=== PATIENT | female | born 1990 | race Caucasian/White ===

== ENCOUNTER 2021-03-13 20:25 | Inpatient (IN) | payer SELFPAY ==
[~2021-03-13] VITALS: Ht 180.3 cm; Wt 87.3 kg
[2021-03-13] VITALS (11 sets, daily range): BP systolic 94–121; BP diastolic 59–76; PULSE 119–137; TEMP 98
--- NOTE | 2021-03-13 20:22 | NUR ---
2021 Patient arrived to unit via EMS after a home with lay out machine operator, Aleida. Patient assisted from stretcher to bed. Pants removed, placenta undelivered, moderate amount of bleeding noted. Patient reports that she delivered a baby boy via around 1829 tonight. She states that her labor started Thursday evening, became more active this morning, and her water broke this afternoon. She reports around 3 hours of pushing. She states that around 1929 she tried to stand up and got "lightheaded and almost fainted", this is when EMS was called. Blood pressure stable at 101/72, tachycardia noted at 137 bpm. Patient pale and reports that she is "tired", she is alert and responses appropriately to questions. Dr. Castillo on his way to the hospital. Plan of care reviewed.
[2021-03-13] MEDS ORDERED: PRENATAL TABLET PO (20:58)
--- NOTE | 2021-03-13 21:08 | NUR ---
2104 Dr. Castillo to room, patient prepped for delivery of placenta. 2107 Spontaneous delivery of placenta by Dr. Castillo. Fundus firms with massage. Repair of 2nd degree perineal laceration with 6cm left wall laceration repair started by Dr. Castillo.
--- NOTE | 2021-03-13 21:30 | NUR ---
2125 Repair complete, pericare provided, and ice pack applied. Plan of care reviewed by Dr. Castillo.
--- NOTE | 2021-03-13 23:30 | NUR ---
Patient feels the urge to void, assisted to the edge of the bed, patient states that she feels "lightheaded and nauseous", appears pale. Assisted back to lying down, plan of care reviewed and patient would like to try to use the bedpan. Patient voids 400cc without difficulty.
[2021-03-14] VITALS (16 sets, daily range): BP systolic 98–127; BP diastolic 56–72; PULSE 92–126; TEMP 97.8–98.8
[2021-03-14 01:19] LABS: MEAN CELL VOLUME 81 fl (80.0-100.0); MEAN CORPUSCULAR HGB CONC 34 g/dl (33.0-37.0); MEAN PLATELET VOLUME 13.4 fl (7.4-10.4); PLATELET COUNT 204 K/mm3 (130-400); RED BLOOD COUNT 2.97 M/mm3 (4.10-5.30); REDCELL DISTRIBUTION WIDTH-CV 14.6 % (11.5-14.5)
[2021-03-14 01:32] LABS: HEMOGLOBIN 8.1 g/dl (12.5-16.0); MEAN CORPUSCULAR HEMOGLOBIN 27 pg (27-31)
[2021-03-14 02:08] LABS: BAND 7 % (0-10); LYMPHOCYTE 6 % (20.0-51.0); MICROCYTOSIS 1+; NEUTROPHILS 183 % (42.0-75.2); PLATELET ESTIMATE NORMAL (NORMAL)
[2021-03-14 02:09] LABS: HYPOCHROMIA 1+
--- NOTE | 2021-03-14 02:15 | NUR ---
Patient assisted to the edge of the bed and denies feeling lightheaded. Assisted to standing, pericare and pads provided, and patient transferred to wheelchair x1 assist. To room 212 via wheelchair.
--- NOTE | 2021-03-14 08:55 | NUR ---
THIS RN INTO ROOM TO HELP PT TO THE TOILET. PT MOVING VERY SLOWLY AND STATES SHE IS NERVOUS. THIS RN REASSURES HER. DAD TO MOMS SIDE TO ASSIST WITH WALKING MOM TO TOILET. AFTER 3 STEPS WERE TAKEN, PT STATES SHE IS DIZZY AND SHORT OF BREATH. THIS RN SITS PT BACK DOWN AND TAKES VITALS. BP 117/73 AND SPO2 100%. PT CLAIMS SHE FEELS OK TO TRY AGAIN. THIS TIME MADE IT TO THE TOILET AND VOIDED 600 CC IN HAT. CHANGED PAD. THIS RN ASSISTED PT BACK TO BED.
[2021-03-14 12:18] LABS: HEMATOCRIT 19.9 % (37.0-47.0); HEMOGLOBIN 6.7 g/dl (12.5-16.0)
--- NOTE | 2021-03-14 12:30 | NUR ---
Iv start to right hand. Iv fluids of lactated ringers infusing at 500 cc bolus as ordered. Visits with patient about hemaglobin at 6.7, and that Dr. Duong would like to transfuse on unit of packed red blood cells. Patient and states would like to visit about this for a few minutes.
--- NOTE | 2021-03-14 17:15 | NUR ---
Blood transfusion complete. 1724 Lasix 10 mg iv given as ordered. Assisted to commode, voids large amount of clear yellow urine with tinge of red color.
--- NOTE | 2021-03-14 19:05 | NUR ---
Pt and spouse ask what needs to be done if they go home before the 24hr delmis, Discussed that H&H recheck after blood transfusion is ordered for 1899. And I would call the On-Call DR and see what needs to be done. Pt states "I really feel a lot better" Pt relxed, using breast pump.
[2021-03-14 19:41] LABS: HEMATOCRIT 20.6 % (37.0-47.0); HEMOGLOBIN 6.8 g/dl (12.5-16.0)
--- NOTE | 2021-03-14 20:00 | NUR ---
Discuss with pt and spouse that On-call Dr would like pt to stay over night and receive another unit of blood. If pt decides to go home, she will need to sign out AMA.
--- NOTE | 2021-03-14 20:10 | NUR ---
pt tearful, on phone relaying information to small parts assembler service asking for recommendations.
--- NOTE | 2021-03-14 20:35 | NUR ---
Spouse states "she's going to stay and get the blood transfusion. The pipe fitter ammonia is concerned about the baby's weight loss. Can we use a scale?"
[2021-03-15] VITALS: BP 99/48; PULSE 104
[2021-03-15 00:30] VITALS: BP 104/72; PULSE 86; TEMP 98.4
[2021-03-15 01:00] VITALS: BP 106/66; PULSE 90
--- NOTE | 2021-03-15 01:00 | NUR ---
Blood transfusion complete, 35mls NS to clear line, NS flush. IV to INT. Up to bathroom with steady gait. into shower. Call light within reach. bathroom dooer jamshid. in room.
--- NOTE | 2021-03-15 02:10 | NUR ---
pt relaxed cuddling with spouse and infant. Pt reminded that baby could not sleep with them in the bed. Verbalized understanding
[2021-03-15 05:51] LABS: BASO # 0.1 K/mm3 (0.0-0.2); BASO % 0.4 % (0.0-2.0); EOS # 0.4 K/mm3 (0.0-0.7); EOS % 1.9 % (0.0-4.0); GRAN # 14.8 K/mm3 (1.4-6.5); GRAN % 81.8 % (42.2-75.2); LYMPH # 2.1 K/mm3 (1.2-3.4); LYMPH % 11.4 % (20.0-51.0); MEAN CORPUSCULAR HGB CONC 33 g/dl (33.0-37.0); MEAN PLATELET VOLUME 12.9 fl (7.4-10.4); MONO # 0.7 K/mm3 (0.1-0.6); MONO % 3.7 % (1.7-9.3); PLATELET COUNT 123 K/mm3 (130-400); RED BLOOD COUNT 2.51 M/mm3 (4.10-5.30); REDCELL DISTRIBUTION WIDTH-CV 14.9 % (11.5-14.5)
[2021-03-15 06:17] LABS: HEMATOCRIT 21.6 % (37.0-47.0); HEMOGLOBIN 7.1 g/dl (12.5-16.0); MEAN CORPUSCULAR HEMOGLOBIN 28 pg (27-31)
[2021-03-15 06:18] LABS: MEAN CELL VOLUME 86 fl (80.0-100.0)
[2021-03-15 07:45] VITALS: BP 97/58; PULSE 88; TEMP 98.4
[2021-03-15] MEDS ORDERED: IBU600 MG PO (09:32)
== END 2021-03-15 11:50 | disposition home or self-care (01) | DRG 769 ==
LOC: LDR 20:25 → LDRO 20:25 → LDR 03-14 00:33 → OB 03-14 02:45 → LDRO 03-14 02:46 → OB 03-14 12:24
PROVIDERS: Student in an Organized Health Care Education/Training Program; ADMIT Obstetrics & Gynecology
PROC: 0KQM0ZZ Repair Perineum Muscle, Open Approach (ICD-10-PCS; principal; 2021-03-14)
PROC: 0UQGXZZ Repair Vagina, External Approach (ICD-10-PCS; 2021-03-14)
PROC: 0UQMXZZ Repair Vulva, External Approach (ICD-10-PCS; 2021-03-14)
DX: Z39.0 Encounter for care and examination of mother immediately after delivery (principal); O90.81 Anemia of the puerperium; D64.9 Anemia, unspecified; O99.893 Other specified diseases and conditions complicating puerperium; R00.0 Tachycardia, unspecified; O70.1 Second degree perineal laceration during delivery
CPT/HCPCS: J1940; J7050; J7120; P9016